=== PATIENT | male | born 1980 ===

== ENCOUNTER → 2022-06-08 10:37 | Outpatient (CLI) | payer BC, SELFPAY ==
--- NOTE | ~2022-06-08 | CT_ITS ---
EXAMINATION: CT abdomen pelvis wo con DATE: 06/08/2022 10:55 INDICATION: Left inguinal hernia TECHNIQUE: Computed tomography (CT) of the abdomen and pelvis was performed without intravenous contr ast. Automated exposure control and iterative reconstruction technique were employed. Exam dose: 604 .74 mGy-cm total exam DLP. COMPARISON: None. FINDINGS: No infiltrate or consolidation or mass lesion at the lung bases. Normal heart size. No carly cardial or pleural effusion. The liver, gallbladder, spleen, pancreas, bile ducts and pancreatic duct as well as well as the adren al glands, kidneys, ureters and urinary bladder are unremarkable. No urinary tract calculus or hydrou reteronephrosis. The urinary bladder and prostate gland are unremarkable. Mild atherosclerotic calcification of the abdominal aorta and iliac arteries. No abdominal aortic ane urysm. No intraperitoneal or retroperitoneal or pelvic mass lesion or adenopathy or ascites. No bowel obstruction. No evidence of appendicitis. No intraperitoneal free air. No umbilical or inguinal hernia is detected. Included skeletal structures are unremarkable. IMPRESSION: No significant abnormality Reviewed, dictated and finalized at [facility]. Reviewed, dictated and finalized at [facility]. [employer]NA[employer] IMPRESSION: No significant abnormality
== END ==
PROVIDERS: PCP Nurse Practitioner Family; Visit Provider Nurse Practitioner Family
DX: K40.90 Unilateral inguinal hernia, without obstruction or gangrene, not specified as recurrent (principal); M54.50 Low back pain, unspecified
CPT/HCPCS: 74176